=== PATIENT | male | born 1985 | race Caucasian/White ===

== ENCOUNTER 2020-01-26 21:13 | Inpatient (IN) | payer OTHER ==
[~2020-01-26] VITALS: Ht 180 cm; Wt 119.1 kg
--- OUTSIDE RECORDS SUMMARY | 2020-01-26 21:19 | XMS REPORT | CCD ---
Author Author ALEXIS HORTA Organization Unknown Address [address] [facility] [address] [place], [place] [id number] Care Team Providers Care Beautician Apprentice Name Role Phone ROMELIA EMMANUEL, MARLO Michael ROMELIA EMMANUEL, MARLO Menon Vital Signs Unknown or Not Available. Allergies Unknown or Not Available. Procedures Unknown or Not Available. History of Immunizations Unknown or Not Available. Problems Unknown or Not Available. Results Unknown or Not Available. Active Medications Unknown or Not Available. Medications Administered During Visit Unknown or Not Available. 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 Discharge Instructions You were admitted to [facility] on 12/09/2015 21:35 with a principal diagnosis of Scabies You were discharged from [facility] on 12/10/2015 00:33 Should you have any questions prior to discharge, please contact a member of your healthcare team. If you have left the hospital and have any questions, please contact your primary care physician. Chief Complaint and Reason For Visit Chief Complaint Date of Onset RASH Function Status Unknown or Not Available. Referral/Transition of Care Unknown or Not Available.
--- OUTSIDE RECORDS SUMMARY | 2020-01-26 21:20 | XMS REPORT ---
Author Author Slade GRAY [facility] Address [address] [place] [address] Care Team Providers Care Sleeve Setter Name Role Phone ISH GRAY Unavailable PROBLEMS Type Condition ICD9-CM Code [id number] Code Onset Dates Condition S tatus SNOMED Code Problem Routine health maintenance Z00.00 Act karen [id number] Problem Elevated blood pressure reading R03.0 Active [id number] ALLERGIES No Known Allergies SOCIAL HISTORY Never Assessed PLAN OF CARE Activity Details Follow Up prn with pcp if not improvin g Reason: VITAL SIGNS Height 71 in 2016-10-22 Weight 249.1 lbs 2016-10-22 Temperature 97.9 degrees Fahrenheit 2016-10-22 Heart Rate 90 bpm 2016-10-22 Respiratory Rate 20 2016-10-22 BMI 34.74 kg/m2 2016-10-22 Blood pressure systolic 124 mmHg 2016-10-22 Blood pressure diastolic 82 mmHg 2016-10-22 MEDICATIONS Medication Instructions Dosage Frequency Start Date End Date Duration S tatus Azithromycin 250 MG Orally Once a day 2 tablets on the fi rst day, then 1 tablet daily for 4 days 24h 5 day(s) Active Fluticasone Propionate 50 MCG/ACT Nasally Once a day 1 spray in each nostril 24h October, 30 day(s) Active RESULTS No Results PROCEDURES No Known procedures IMMUNIZATIONS No Known Immunizations MEDICAL (GENERAL) HISTORY Type Description Date Medical History ADHD as a child
--- OUTSIDE RECORDS SUMMARY | 2020-01-26 21:20 | XMS REPORT ---
Author Author Slade SALDANA Organization [facility] Address [address] [place] [address] Care Team Providers Care Ring Striker Name Role Phone KALINA SALDANA Unavailable PROBLEMS Type Condition ICD9-CM Code [id number] Code Onset Dates Condition S tatus SNOMED Code Problem Routine health maintenance Z00.00 Act karen [id number] Problem Elevated blood pressure reading R03.0 Active [id number] Assessment Routine health maintenance Z00.00 Feb, Active [id number] ALLERGIES Unknown Allergies SOCIAL HISTORY No smoking Hx information available PLAN OF CARE VITAL SIGNS MEDICATIONS Unknown Medications RESULTS Name Result Date Reference Range THYROID ANALYZER 2016-03-12 TSH 1.210 0.450-4.500 A1C 2016-03-12 Hemoglobin A1c 5.6 4.8-5.6 CBC 2016-03-12 WBC 7.1 3.4-10.8 RBC 5.08 4.14-5.80 Hemoglobin 15.4 12.6-17.7 Hematocrit 44.3 37.5-51.0 MCV 87 79-97 MCH 30.3 26.6-33.0 MCHC 34.8 31.5-35.7 RDW 13.9 12.3-15.4 Platelets 263 150-379 Neutrophils 58 Lymphs 32 Monocytes 9 Eos 1 Basos 0 Neutrophils (Absolute) 4.1 1.4-7.0 Lymphs (Absolute) 2.3 0.7-3.1 Monocytes(Absolute) 0.7 0.1-0.9 Eos (Absolute) 0.1 0.0-0.4 Baso (Absolute) 0.0 0.0-0.2 Immature Granulocytes 0 Immature Grans (Abs) 0.0 0.0-0.1 LIPID PANEL 2016-03-12 Cholesterol, Total 172 100-199 Triglycerides 75 0-149 HDL Cholesterol 38 >39 VLDL Cholesterol Ike 15 5-40 LDL Cholesterol Calc 119 0-99 CMP 2016-03-12 Glucose, Serum 83 65-99 BUN 21 6-20 Creatinine, Serum 0.89 0.76-1.27 eGFR If NonAfricn Am 116 >59 eGFR If Africn Am 134 >59 BUN/Creatinine Ratio 24 8-19 Sodium, Serum 141 134-144 Potassium, Serum 4.4 3.5-5.2 Chloride, Serum 100 97-108 Carbon Dioxide, Total 24 18-29 Calcium, Serum 9.4 8.7-10.2 Protein, Total, Serum 7.7 6.0-8.5 Albumin, Serum 4.7 3.5-5.5 Globulin, Total 3.0 1.5-4.5 A/G Ratio 1.6 1.1-2.5 Bilirubin, Total 0.5 0.0-1.2 Alkaline Phosphatase, S 97 39-117 AST (SGOT) 23 0-40 ALT (SGPT) 42 0-44 PROCEDURES Procedure Date Ordered Related Diagnosis Body Site ASSAY THYROID STIM HORMONE Mar 12, 2016 GLYCATED HEMOGLOBIN TEST Mar 12, 2016 COMPREHEN METABOLIC PANEL Mar 12, 2016 LIPID PANEL Mar 12, 2016 VENIPUNCT, ROUTINE* Mar 12, 2016 IMMUNIZATIONS No Known Immunizations
--- OUTSIDE RECORDS SUMMARY | 2020-01-26 21:20 | XMS REPORT ---
Author Author Slade RODRIGUEZ Organization [facility] Address [address] [place] [address] Care Team Providers Care Laborer Shipyard Name Role Phone HEMALATHA RODRIGUEZ Unavailable PROBLEMS Type Condition ICD9-CM Code TML55-AT Code Onset Dates Condition S tatus SNOMED Code Problem Routine health maintenance Z00.00 Act karen [id number] Problem Elevated blood pressure reading R03.0 Active [id number] ALLERGIES No Information ENCOUNTERS Encounter Location Date Diagnosis [facility] [address] [id number] [place] [id number] Aug, Encounter for dental examina tion Z01.20 [facility] [address] [place] [id number] Aug, Dental examination Z01.20 [facility] [address] [id number] [address] [place] [id number] 08 Jul, 2017 Family history of early CAD Z82.49 and Family history of diabetes mellitus Z83.3 [facility] [address] [id number] [address] [place] [address] Jun, Unprotected sex Z72.51 ; Scr een for STD (sexually transmitted disease) Z11.3 ; Family history of early CAD Z82.49 and Family history of diabetes mellitus Z83.3 [facility] [address] [id number] [address] [place] [address] October, Acute non-recurrent maxillar y sinusitis J01.00 [facility] [address] [facility] [id number] [address] [place] [phone] Mar, [facility] [address] [id number] [address] [place] [phone] Feb, [facility] [address] [id number] [address] [place] [address] 28 Feb, 2016 Routine health maintenance Z 00.00 [facility] [address] [facility] [id number] [address] [address] 23 Feb, 2016 Routine health maintenance Z 00.00 and Elevated blood pressure reading R03.0 IMMUNIZATIONS No Known Immunizations SOCIAL HISTORY Never Assessed REASON FOR VISIT Lab walk in--[facility] PLAN OF CARE VITAL SIGNS MEDICATIONS No Known Medications RESULTS No Results PROCEDURES Procedure Date Ordered Result Body Site LIPID PANEL Jul 23, 2017 COMPREHEN METABOLIC PANEL Jul 23, 2017 ASSAY THYROID STIM HORMONE Jul 23, 2017 COMPLETE CBC W/AUTO DIFF WBC Jul 23, 2017 VENIPUNCT, ROUTINE* Jul 23, 2017 INSTRUCTIONS MEDICATIONS ADMINISTERED No Known Medications MEDICAL (GENERAL) HISTORY Type Description Date Medical History ADHD as a child Medical History Hypertension
--- OUTSIDE RECORDS SUMMARY | 2020-01-26 21:20 | XMS REPORT ---
Author Author Slade SALDANA Organization [employer] Address Unknown Phone Unavailable Care Team Providers Care Machine Clipper Name Role Phone KALINA SALDANA CP Unavailable Allergies No Known Allergies Problems Problem Type Condition Code Onset Dates Condition Statu s Problem Elevated blood pressure reading R03.0 Active Problem Routine health maintenance Z00.00 A ctive Medications No Known Medications Vital Signs Date/Time: Mar 12, 2016 Blood Pressure Diastolic 100 mmHg Blood Pressure Systolic 130 mmHg Height 71 in Results No Known Results Summary Purpose [employer] Submission
--- OUTSIDE RECORDS SUMMARY | 2020-01-26 21:20 | XMS REPORT | Continuity of Care Document ---
Demographics Preferred Language Unknown Marital Status Unknown Scientologist Affiliation Unknown Race Unknown Ethnic Group Unknown Author Organization Unknown Address Unknown Phone Unavailable Allergies There is no data. Medications There is no data. Problems There is no data. Procedures There is no data. Results Test Result Range CBC With Differential/Platelet - 6 14:16 WBC 7.1 x10E3/uL 3.4-10.8 RBC 5.08 x10E6/uL 4.14-5.80 Hemoglobin 15.4 g/dL 12.6-17.7 Hematocrit 44.3 % 37.5-51.0 MCV 87 fL 79-97 MCH 30.3 pg 26.6-33.0 MCHC 34.8 g/dL 31.5-35.7 RDW 13.9 % 12.3-15.4 Platelets 263 x10E3/uL 150-379 Neutrophils 58 % Lymphs 32 % Monocytes 9 % Eos 1 % Basos 0 % Neutrophils (Absolute) 4.1 x10E3/uL 1.4- 7.0 Lymphs (Absolute) 2.3 x10E3/uL 0.7-3.1 Monocytes(Absolute) 0.7 x10E3/uL 0.1-0.9 Eos (Absolute) 0.1 x10E3/uL 0.0-0.4 Baso (Absolute) 0.0 x10E3/uL 0.0-0.2 Immature Granulocytes 0 % Immature Grans (Abs) 0.0 x10E3/uL 0.0-0. 1 Comp. Metabolic Panel (14) - 03/12/16 14 :16 Glucose, Serum 83 mg/dL 65-99 BUN 21 mg/dL 6-20 Creatinine, Serum 0.89 mg/dL 0.76-1.27 eGFR If NonAfricn Am 116 mL/min/1.73 >59 eGFR If Africn Am 134 mL/min/1.73 >5 9 BUN/Creatinine Ratio 24 8-19 Sodium, Serum 141 mmol/L 134-144 Potassium, Serum 4.4 mmol/L 3.5-5.2 Chloride, Serum 100 mmol/L 97-108 Carbon Dioxide, Total 24 mmol/L 18-29 Calcium, Serum 9.4 mg/dL 8.7-10.2 Protein, Total, Serum 7.7 g/dL 6.0-8.5 Albumin, Serum 4.7 g/dL 3.5-5.5 Globulin, Total 3.0 g/dL 1.5-4.5 A/G Ratio 1.6 1.1-2.5 Bilirubin, Total 0.5 mg/dL 0.0-1.2 Alkaline Phosphatase, S 97 IU/L 39-117 AST (SGOT) 23 IU/L 0-40 ALT (SGPT) 42 IU/L 0-44 Lipid Panel - 03/12/16 14:16 Cholesterol, Total 172 mg/dL 100-199 Triglycerides 75 mg/dL 0-149 HDL Cholesterol 38 mg/dL >39 VLDL Cholesterol Ike 15 mg/dL 5-40 LDL Cholesterol Calc 119 mg/dL 0-99 Hemoglobin A1c - 03/12/16 14:16 Hemoglobin A1c 5.6 % 4.8-5.6 Thyroid [place] Profile - 03/12/16 14:16 TSH 1.210 uIU/mL 0.450-4.500 CBC - 07/23/17 14:44 WHITE BLOOD CELL COUNT 6.5 Thousand/uL 3 .8-10.8 RED BLOOD CELL COUNT 5.16 Million/uL 4.2 0-5.80 HEMOGLOBIN 15.3 g/dL 13.2-17.1 HEMATOCRIT 44.7 % 38.5-50.0 MCV 86.6 fL 80.0-100.0 MCH 29.7 pg 27.0-33.0 MCHC 34.2 g/dL 32.0-36.0 RDW 13.2 % 11.0-15.0 PLATELET COUNT 270 Thousand/uL 140-400 MPV 10.2 fL 7.5-12.5 ABSOLUTE NEUTROPHILS 3010 cells/uL 1500- 7800 ABSOLUTE LYMPHOCYTES 2776 cells/uL 850-3 900 ABSOLUTE MONOCYTES 644 cells/uL 200-950 ABSOLUTE EOSINOPHILS 59 cells/uL 15-500 ABSOLUTE BASOPHILS 13 cells/uL 0-200 NEUTROPHILS 46.3 % NRG LYMPHOCYTES 42.7 % NRG MONOCYTES 9.9 % NRG EOSINOPHILS 0.9 % NRG BASOPHILS 0.2 % NRG TSH - 06/27/19 15:37 TSH 1.29 mIU/L 0.40-4.50 Encounters ACCT No. Visit Date/Time Discharge Status Pt. Type Provider Facility Loc./Unit Complaint [id number] 03/13/2016 18:05:00 Document Registration [id number] 01/25/2020 14:40:00 ACT Outpatient HEMALATHA RODRIGUEZ APRN [facility] [id number] 06/27/2019 15:00:00 Document Registration [id number] 07/23/2017 14:40:00 Document Registration
--- OUTSIDE RECORDS SUMMARY | 2020-01-26 21:20 | XMS REPORT ---
Author Author Slade SALDANA Organization [facility] Address [address] [place] [address] Care Team Providers Care Mattress Spring Encaser Name Role Phone KALINA SALDANA Unavailable PROBLEMS Type Condition ICD9-CM Code [id number] Code Onset Dates Condition S tatus SNOMED Code Problem Routine health maintenance Z00.00 Act karen [id number] Problem Elevated blood pressure reading R03.0 Active [id number] Assessment Routine health maintenance Z00.00 Feb, Active 389700530 ALLERGIES Substance Reaction Event Type Date Status N.K.D.A. Unknown Non Drug Allergy Feb, Unknown SOCIAL HISTORY No smoking Hx information available PLAN OF CARE VITAL SIGNS Height 71 in 2016-03-07 Weight 248.0 lbs 2016-03-07 Heart Rate 86 bpm 2016-03-07 Respiratory Rate 20 2016-03-07 BMI 34.59 kg/m2 2016-03-07 Blood pressure systolic 141 mmHg 2016-03-07 Blood pressure diastolic 85 mmHg 2016-03-07 MEDICATIONS Unknown Medications RESULTS Name Result Date Reference Range URINE DRUG SCREEN (IN HOUSE) 2016-03-07 Lot # [id number] Exp date 07/02 Control + COCAINE neg AMPH neg MTD neg THC neg OPIATE neg BENZO neg PCP neg BAR neg OXY neg MAMP neg TCA neg MDMA neg UA LONG DIP (IN HOUSE) 2016-03-07 Lot # [id number] Exp date 01/29 Clarity clear Color ariana Odor none GLU negative SELMA 1+ KET trace SG >=1.030 BLO trace-lysed pH 5.5 Protein negative URO 0.2 NIT negative BIGG negative Lot # Exp date PROCEDURES Procedure Date Ordered Related Diagnosis Body Site DRUG SCREEN NON TLC DEVICES Mar 07, 2016 Office Visit, New Pt., Level 3 Mar 07, 2016 URINALYSIS, AUTO, W/O SCOPE Mar 07, 2016 IMMUNIZATIONS No Known Immunizations
--- OUTSIDE RECORDS SUMMARY | 2020-01-26 21:20 | XMS REPORT ---
Author Author Slade RODRIGUEZ Organization [facility] Address [address] [place] [address] Care Team Providers Care Paper Machine Tender Name Role Phone HEMALATHA RODRIGUEZ Unavailable PROBLEMS Type Condition ICD9-CM Code VOO28-SM Code Onset Dates Condition S tatus SNOMED Code Problem Routine health maintenance Z00.00 Act karen [id number] Problem Elevated blood pressure reading R03.0 Active 89111888 ALLERGIES No Known Allergies ENCOUNTERS Encounter Location Date Diagnosis [facility] [place] [address] [address] Dec, Pharyngitis due to other org anism J02.8 [facility] [address] [id number] Aug, Encounter for dental examina tion Z01.20 [facility] [address] [id number] Aug, Dental examination Z01.20 [facility] [address] [address] 08 Jul, 2017 Family history of early CAD Z82.49 and Family history of diabetes mellitus Z83.3 [place] [address] [address] Jun, Unprotected sex Z72.51 ; Scr een for STD (sexually transmitted disease) Z11.3 ; Family history of early CAD Z82.49 and Family history of diabetes mellitus Z83.3 [place] [address] [address] October, Acute non-recurrent maxillar y sinusitis J01.00 [facility] [place] [address] [address] Mar, [facility] [place] [address] [id number] [place] [address] Feb, [facility] [address] [id number] [address] [address] Feb, Routine health maintenance Z 00.00 [facility] [place] [address] [facility] [id number] [address] [address] Feb, Routine health maintenance Z 00.00 and Elevated blood pressure reading R03.0 IMMUNIZATIONS No Known Immunizations SOCIAL HISTORY Never Assessed REASON FOR VISIT [facility] VITAL SIGNS Height 71 in 2017-12-22 Weight 250.8 lbs 2017-12-22 Temperature 98.2 degrees Fahrenheit 2017-12-22 Heart Rate 88 bpm 2017-12-22 Respiratory Rate 20 2017-12-22 BMI 34.98 kg/m2 2017-12-22 Blood pressure systolic 130 mmHg 2017-12-22 Blood pressure diastolic 92 mmHg 2017-12-22 MEDICATIONS Medication Instructions Dosage Frequency Start Date End Date Duration S tatus Amoxicillin 500 MG Orally every 8 hrs 1 capsule 8h 7 days Not-Taking PredniSONE 20 mg Orally Once a day 2 tablets 24h Dec, Dec, 05 days Active Zithromax Z-Mike 250 MG Orally Once a day 2 tablets on the first day, then 1 tablet daily for 4 days 24h Dec, Dec, 5 day(s) Acti ve RESULTS No Results PROCEDURES No Known procedures INSTRUCTIONS MEDICATIONS ADMINISTERED No Known Medications MEDICAL (GENERAL) HISTORY Type Description Date Medical History ADHD as a child Medical History Hypertension
--- OUTSIDE RECORDS SUMMARY | 2020-01-26 21:20 | XMS REPORT ---
Author Author Slade DICKEY Organization [facility] Address [address] [place] [address] Care Team Providers Care Metalizing Machine Operator Automatic Name Role Phone CLARA DICKEY Unavailable PROBLEMS Type Condition ICD9-CM Code ZPT35-VX Code Onset Dates Condition S tatus SNOMED Code Problem Routine health maintenance Z00.00 Act karen [id number] Problem Elevated blood pressure reading R03.0 Active 86598279 ALLERGIES No Known Allergies ENCOUNTERS Encounter Location Date Diagnosis [facility] [address] [address] Dec, Pharyngitis due to other org anism J02.8 [facility] [address] [id number] Aug, Encounter for dental examina tion Z01.20 [facility] [address] [id number] Aug, Dental examination Z01.20 [facility] [address] [address] 08 Jul, 2017 Family history of early CAD Z82.49 and Family history of diabetes mellitus Z83.3 [facility] [address] [address] Jun, Unprotected sex Z72.51 ; Scr een for STD (sexually transmitted disease) Z11.3 ; Family history of early CAD Z82.49 and Family history of diabetes mellitus Z83.3 [facility] [address] [address] October, Acute non-recurrent maxillar y sinusitis J01.00 [facility] [address] [address] 04 Mar, 2016 [facility] [address] [facility] [id number] [address] [address] Feb, [facility] [address] [facility] [id number] [address], [place] [address] Feb, Routine health maintenance Z 00.00 [facility] [address] [facility] [id number] [address] [address] Feb, Routine health maintenance Z 00.00 and Elevated blood pressure reading R03.0 IMMUNIZATIONS No Known Immunizations SOCIAL HISTORY Never Assessed REASON FOR VISIT prophy PLAN OF CARE Activity Details Follow Up First Available Reason:SRP VITAL SIGNS Blood pressure systolic 121 mmHg 2017-09-04 Blood pressure diastolic 79 mmHg 2017-09-04 MEDICATIONS Medication Instructions Dosage Frequency Start Date End Date Duration S tatus Amoxicillin 500 MG Orally every 8 hrs 1 capsule 8h 7 days Active RESULTS No Results PROCEDURES Procedure Date Ordered Result Body Site COMP ORAL EVALUATION - NEW/EST PT September 04, 2017 INTRAORL-PERIAPICAL 1 FILM 76404 September 04, 2017 PANORAMIC FILM SEE ALSO CODE [id number] September 04, 2017 BITEWINGS - FOUR FILMS September 04, 2017 INTRAORL-PERIAPICAL EA ADD FILM September 04, 2017 INTRAORL-PERIAPICAL EA ADD FILM September 04, 2017 INTRAORL-PERIAPICAL EA ADD FILM September 04, 2017 INTRAORL-PERIAPICAL EA ADD FILM September 04, 2017 INSTRUCTIONS MEDICATIONS ADMINISTERED No Known Medications MEDICAL (GENERAL) HISTORY Type Description Date Medical History ADHD as a child Medical History Hypertension
--- OUTSIDE RECORDS SUMMARY | 2020-01-26 21:20 | XMS REPORT ---
Author Author Slade SALDANA Organization [employer] Address Unknown Phone Unavailable Care Team Providers Care Harvesting Supervisor Name Role Phone KALINA SALDANA CP Unavailable Allergies No Known Allergies Problems Problem Type Condition Code Onset Dates Condition Statu s Problem Elevated blood pressure reading R03.0 Active Problem Routine health maintenance Z00.00 A ctive Medications Medication Code System Code Instructions Start Date End Date Status Dosage Lisinopril [facility] [address]-31 10 MG Orally Once a day Mar 18, 2016 1 tablet Results No Known Results Summary Purpose [employer] Submission
--- OUTSIDE RECORDS SUMMARY | 2020-01-26 21:20 | XMS REPORT ---
Author Author Slade MATHIAS [facility] Address Unknown Care Team Providers Care Blanket Weaver Name Role Phone ASHLIE MATHIAS Unavailable PROBLEMS Type Condition ICD9-CM Code EGT12-QO Code Onset Dates Condition S tatus SNOMED Code Problem Routine health maintenance Z00.00 Act karen [id number] Problem Elevated blood pressure reading R03.0 Active 98650184 ALLERGIES No Known Allergies ENCOUNTERS Encounter Location Date Diagnosis [facility] [address] [id number] Dec, Pharyngitis due to other org anism J02.8 [facility] [address] [id number] Aug, Encounter for dental examina tion Z01.20 [facility] [address] [id number] Aug, Dental examination Z01.20 [facility] [address] [address] 08 Jul, 2017 Family history of early CAD Z82.49 and Family history of diabetes mellitus Z83.3 [facility] [address] [address] Jun, Unprotected sex Z72.51 ; Scr een for STD (sexually transmitted disease) Z11.3 ; Family history of early CAD Z82.49 and Family history of diabetes mellitus Z83.3 [facility] [address] [address] October, Acute non-recurrent maxillar y sinusitis J01.00 [facility] [address] [address] 04 Mar, 2016 [facility] [address] [facility] [id number] [address] [place] [address] 28 Feb, 2016 [facility] [address] [facility] [id number] [address] [place] [address] 28 Feb, 2016 Routine health maintenance Z 00.00 [facility] [address] [facility] [id number] [address] [place] [address] 23 Feb, 2016 Routine health maintenance Z 00.00 and Elevated blood pressure reading R03.0 IMMUNIZATIONS No Known Immunizations SOCIAL HISTORY Never Assessed REASON FOR VISIT CA[place]O PLAN OF CARE Activity Details Follow Up prn Reason:hygiene VITAL SIGNS Blood pressure systolic 132 mmHg 2017-09-03 Blood pressure diastolic 94 mmHg 2017-09-03 MEDICATIONS Medication Instructions Dosage Frequency Start Date End Date Duration S tatus Amoxicillin 500 MG Orally every 8 hrs 1 capsule 8h 7 days Active RESULTS No Results PROCEDURES Procedure Date Ordered Result Body Site LTD ORAL EVALUATION - PROBLEM FOCUS September 03, 2017 INTRAORL-PERIAPICAL 1 FILM 37015 September 03, 2017 BITEWING - SINGLE FILM September 03, 2017 INSTRUCTIONS MEDICATIONS ADMINISTERED No Known Medications MEDICAL (GENERAL) HISTORY Type Description Date Medical History ADHD as a child Medical History Hypertension
[2020-01-26] MEDS ORDERED: NS IV 1000 ML 1,000 ML ONE (21:54)
[2020-01-26] MEDS ORDERED: ACETAMINOPHEN 500 MG TAB (TYLENOL) ONE (21:54)
[2020-01-26] MEDS ORDERED: ONDANSETRON 4 MG/2 ML (SDV) Z0FRAN ONE (21:54)
--- NOTE | 2020-01-26 21:56 | ED General ---
General Stated Complaint: FEVER,COUGH,NOT EATING Source of Information: Patient Exam Limitations: No Limitations (MASSIMO KELLY APRN) History of Present Illness Date Seen by Provider: Jan 26, 2020 Time Seen by Provider: 21:55 Initial Comments To ER with reports of fever cough and no appetite. He has general malaise. The fever has been up to 103. He is otherwise healthy, nonsmoker. He works at [employer], states there have been a few cases of coronavirus through that facility. Symptoms began on Saturday 01/20 Timing/Duration: 4-5 Days Severity: Moderate Associated Systoms: Cough, Fever/Chills (MASSIMO KELLY APRN) Allergies and Home Medications Allergies Coded Allergies: No Known Drug Allergies (Unverified , 01/26/20) Home Medications No Active Prescriptions or Reported Meds Patient Home Medication List Home Medication List Reviewed: Yes (MASSIMO KELLY APRN) Review of Systems Review of Systems Constitutional: see HPI, chills, fever, malaise, weakness EENTM: see HPI Respiratory: see HPI, cough, short of breath Genitourinary: no symptoms reported Musculoskeletal: no symptoms reported Skin: no symptoms reported Psychiatric/Neurological: No Symptoms Reported (AMSSIMO KELLY APRN) Physical Exam Vital Signs Vital Signs - First Documented 01/26/20 01/26/20 21:40 22:54 Temp 39.7 Pulse 128 Resp 18 B/P (MAP) 118/106 (110) Pulse Ox 95 O2 Delivery Room Air O2 Flow Rate 2.00 (ALEXIS AMBRIZ MD) Vital Signs Capillary Refill : (MASSIMO KELLY APRN) Height, Weight, BMI Height: '" Weight: lbs. oz. kg; BMI Method: General Appearance: No Apparent Distress, WD/WN, Other (oxygen saturation 93- 96% on room air, heart rate 115 sinus.) Eyes: Bilateral Eye Normal Inspection, Bilateral Eye PERRL, Bilateral Eye EOMI HEENT: PERRL/EOMI, TMs Normal Respiratory: Lungs Clear, Normal Breath Sounds, No Accessory Muscle Use, No Respiratory Distress Gastrointestinal: Non Tender, Soft Neurologic/Psychiatric: Alert, Oriented x3 Skin: Normal Color, Warm/Dry (MASSIMO KELLY APRN) Focused Exam Lactate Level 01/26/20 21:50: Lactic Acid Level 1.05 (ALEXIS AMBRIZ MD) Lactic Acid Level Laboratory Tests Test 01/26/20 21:50 Lactic Acid Level 1.05 MMOL/L (0.50-2.00) (ALEXIS AMBRIZ MD) Progress/Results/Core Measures Suspected Sepsis SIRS Temperature: Pulse: Respiratory Rate: Blood Pressure / Mean: (MASSIMO KELLY APRN) Results/Orders Lab Results Laboratory Tests Test 01/26/20 21:50 01/26/20 21:55 01/26/20 22:51 Range/Units White Blood Count 4.8 4.3-11.0 10^3/uL Red Blood Count 5.13 4.35-5.85 10^6/uL Hemoglobin 15.4 13.3-17.7 G/DL Hematocrit 44 40-54 % Mean Corpuscular Volume 86 80-99 FL Mean Corpuscular Hemoglobin 30 25-34 PG Mean Corpuscular Hemoglobin Concent 35 32-36 G/DL Red Cell Distribution Width 13.9 10.0-14.5 % Platelet Count 205 130-400 10^3/uL Mean Platelet Volume 10.0 7.4-10.4 FL Neutrophils (%) (Auto) 59 42-75 % Lymphocytes (%) (Auto) 27 12-44 % Monocytes (%) (Auto) 14 H 0-12 % Eosinophils (%) (Auto) 0 0-10 % Basophils (%) (Auto) 0 0-10 % Neutrophils # (Auto) 2.9 1.8-7.8 X 10^3 Lymphocytes # (Auto) 1.3 1.0-4.0 X 10^3 Monocytes # (Auto) 0.7 0.0-1.0 X 10^3 Eosinophils # (Auto) 0.0 0.0-0.3 10^3/uL Basophils # (Auto) 0.0 0.0-0.1 10^3/uL D-Dimer 0.07 0.00-0.49 UG/ML Sodium Level 138 135-145 MMOL/L Potassium Level 4.0 3.6-5.0 MMOL/L Chloride Level 105 98-107 MMOL/L Carbon Dioxide Level 22 21-32 MMOL/L Anion Gap 11 5-14 MMOL/L Blood Urea Nitrogen 21 H 7-18 MG/DL Creatinine 1.32 H 0.60-1.30 MG/DL Estimat Glomerular Filtration Rate > 60 BUN/Creatinine Ratio 16 Glucose Level 130 H 70-105 MG/DL Lactic Acid Level 1.05 0.50-2.00 MMOL/L Calcium Level 9.1 8.5-10.1 MG/DL Corrected Calcium 8.9 8.5-10.1 MG/DL Total Bilirubin 0.4 0.1-1.0 MG/DL Aspartate Amino Transf (AST/SGOT) 35 H 5-34 U/L Alanine Aminotransferase (ALT/SGPT) 47 0-55 U/L Alkaline Phosphatase 77 40-136 U/L Lactate Dehydrogenase 311 H 125-220 U/L C-Reactive Protein High Sensitivity 4.46 H 0.00-0.50 MG/DL Total Protein 7.7 6.4-8.2 GM/DL Albumin 4.3 3.2-4.5 GM/DL Procalcitonin 0.06 <0.10 NG/ML (ALEXIS AMBRIZ MD) My Orders Orders - ALEXIS AMBRIZ MD Blood Culture (01/26/20 22:29) Urinalysis (01/26/20 22:29) Urine Culture (01/26/20 22:29) Vital Signs Adult Sepsis Patie Q15M (01/26/20 22:29) Remove Rings In Anticipation O (01/26/20 22:29) Lactic Acid Analyzer (01/26/20 22:29) Ceftriaxone For Iv Use (Rocephin For I (01/26/20 22:30) Azithromycin Injection (Zithromax Inject (01/26/20 22:30) O2 (01/26/20 22:37) Arterial Blood Gas (01/26/20 22:57) Covid 19 Inhouse Test (01/26/20 22:57) (ALEXIS AMBRIZ MD) Medications Given in ED Current Medications Medications Dose Ordered Sig/Flip Route Start Time Stop Time Status Last Admin Dose Admin Acetaminophen 1,000 mg ONCE ONCE PO 01/26/20 22:00 01/26/20 22:01 DC 01/26/20 22:00 1,000 MG Azithromycin 500 mg/Sodium Chloride 250 ml @ 250 mls/hr ONCE ONCE IV 01/26/20 22:30 01/26/20 23:29 01/26/20 22:46 250 MLS/HR Ceftriaxone Sodium 1000 mg/ Sterile Water 10 ml @ 200 mls/hr ONCE ONCE IV 01/26/20 22:30 01/26/20 22:32 DC 01/26/20 22:46 200 MLS/HR Ondansetron HCl 4 mg ONCE ONCE IVP 01/26/20 22:00 01/26/20 22:01 DC 01/26/20 22:00 4 MG (ALEXIS AMBRIZ MD) Vital Signs/I&O 01/26/20 01/26/20 01/26/20 21:40 22:00 22:54 Temp 39.7 39.7 Pulse 128 Resp 18 B/P (MAP) 118/106 (110) Pulse Ox 95 96 O2 Delivery Room Air Nasal Cannula O2 Flow Rate 2.00 (ALEXIS AMBRIZ MD) Vital Signs/I&O Capillary Refill : (MASSIMO KELLY APRN) Progress Note : Time: 23:07 Progress Note Care of this patient was assumed from Massimo Kelly NP. Labs have been reviewed. Chest x-ray was viewed and demonstrated subtle patchy bibasilar infiltrates. Antibiotics were initiated with Rocephin and azithromycin after blood cultures were obtained. Given normal lactic acid and pro-calcitonin, this is likely viral. COVID 19 is suspected since patient has known exposures in the workplace. The PCR swab has been obtained. Case was reviewed with Dr. Zavala. She would like to obtain a rapid swab and an ABG prior to admission. Patient is being admitted due to hypoxia. He intermittently has dipped into the upper 80s on room air with a normal waveform. This happens most often when patient is dozing. A nasal cannula was applied to help with his hypoxia. (ALEXIS AMBRIZ MD) Diagnostic Imaging Diagonstic Imaging: Xray Plain Films/CT/US/NM/MRI: chest Comments Chest x-ray viewed by me. Report not yet available. There are subtle bibasilar patchy infiltrates. (ALEXIS AMBRIZ MD) Departure Communication (Admissions) Time/Spoke to Admitting Phy: 22:55 Dr. Zavala (ALEXIS AMBRIZ MD) Impression Primary Impression: Pneumonia Qualified Codes: J18.9 - Pneumonia, unspecified organism Additional Impressions: Person under investigation for COVID-19 Hypoxia Disposition: ADMITTED INPATIENT Condition: Stable Admissions Decision to Admit Reason: Admit from ER (General) Decision to Admit/Date: Jan 26, 2020 Time/Decision to Admit Time: 22:55 (ALEXIS AMBRIZ MD) Departure-Patient Inst. Referrals: [facility] [place]) Primary Care Physician Scripts No Active Prescriptions or Reported Meds MASSIMO KELLY APRN Jan 26, 2020 21:56 ALEXIS AMBRIZ MD Jan 26, 2020 23:09
[2020-01-26] MEDS ORDERED: ACETAMINOPHEN 500 MG TAB (TYLENOL) PO ONE (22:00)
[2020-01-26] MEDS ORDERED: NS IV 1000 ML 1,000 ML IV SCH (22:00)
[2020-01-26] MEDS ORDERED: ONDANSETRON 4 MG/2 ML (SDV) Z0FRAN IVP ONE (22:00)
[2020-01-26 22:08] LABS: BASOPHILS % (AUTO) 0 % (0-10); EOSINOPHILS % (AUTO) 0 % (0-10); HEMATOCRIT 44 % (40-54); HEMOGLOBIN 15.4 G/DL (13.3-17.7); LYMPHOCYTES # (AUTO) 1.3 X 10^3 (1.0-4.0); LYMPHOCYTES % (AUTO) 27 % (12-44); MEAN CORPUSCULAR HEMOGLOBIN 30 PG (25-34); MEAN CORPUSCULAR HGB CONC 35 G/DL (32-36); MEAN CORPUSCULAR VOLUME 86 FL (80-99); MONOCYTES # (AUTO) 0.7 X 10^3 (0.0-1.0); MONOCYTES % (AUTO) 14 % (0-12); NEUTROPHILS # (AUTO) 2.9 X 10^3 (1.8-7.8); NEUTROPHILS % (AUTO) 59 % (42-75); PLATELET COUNT 205 10^3/uL (130-400); RED CELL DISTRIBUTION WIDTH 13.9 % (10.0-14.5); WHITE BLOOD COUNT 4.8 10^3/uL (4.3-11.0)
[2020-01-26 22:30] LABS: ALANINE AMINOTRANSFERASE 47 U/L (0-55); ALBUMIN 4.3 GM/DL (3.2-4.5); ALKALINE PHOSPHATASE 77 U/L (40-136); BILIRUBIN,TOTAL 0.4 MG/DL (0.1-1.0); BUN/CREATININE RATIO 16; CALCIUM 9.1 MG/DL (8.5-10.1); CARBON DIOXIDE 22 MMOL/L (21-32); CHLORIDE 105 MMOL/L (98-107); CREATININE SERUM 1.32 MG/DL (0.60-1.30); GFR ESTIMATED > 60; GLUCOSE 130 MG/DL (70-105); SODIUM 138 MMOL/L (135-145); TOTAL PROTEIN 7.7 GM/DL (6.4-8.2)
[2020-01-26] MEDS ORDERED: AZITHROMYCIN INJECTION 500 MG in NS (IVPB) 250 ML IV ONE (22:30)
[2020-01-26] MEDS ORDERED: cefTRIAXone FOR IV USE 1,000 MG in WATER (STERILE) FOR INJECTION 10 ML IV ONE (22:30)
[2020-01-26 23:00] LABS: BILIRUBIN,URINE NEGATIVE (NEGATIVE); CLARITY,URINE CLEAR; COLOR,URINE YELLOW; GLUCOSE, URINE (UA) NEGATIVE (NEGATIVE); KETONES,URINE TRACE (NEGATIVE); LEUKOCYTE ESTERASE ,URINE NEGATIVE (NEGATIVE); NITRITE,URINE NEGATIVE (NEGATIVE); PROTEIN,URINE 1+ (NEGATIVE)
--- OUTSIDE RECORDS SUMMARY | 2020-01-26 23:17 | XMS REPORT | Continuity of Care Document ---
[...] 14:16 Hemoglobin A1c 5.6 % 4.8-5.6 Thyroid [place] Profile - 03/12/16 14:16 TSH 1.210 uIU/mL [...] - 06/27/19 15:37 TSH 1.29 mIU/L 0.40-4.50 Complete blood count (CBC) with automate d white blood cell (WBC) differential - 01/26/20 21:50 Blood leukocytes automated count (number/volume) 4.8 10*3/uL 4.3-11.0 Blood erythrocytes automated count (number/volume) 5.13 10*6/uL 4.35-5.85 Venous blood hemoglobin measurement (mass/volume) 15.4 g/dL 13.3-17.7 Blood hematocrit (volume fraction) 44 % 40-54 Automated erythrocyte mean corpuscular volume 86 [ foz_us] 80-99 Automated erythrocyte mean corpuscular h emoglobin (mass per erythrocyte) 30 pg 25-34 Automated erythrocyte mean corpuscular h emoglobin concentration measurement (mass/volume) 35 g/dL 32-36 Automated erythrocyte distribution width ratio 13. 9 % 10.0- 14.5 Automated blood platelet count (count/volume) 205 10*3/uL 130-400 Automated blood platelet mean volume measurement 10.0 [foz_us] 7.4-10.4 Automated blood neutrophils/100 leukocytes 59 % 42-75 Automated blood lymphocytes/100 leukocytes 27 % 12-44 Blood monocytes/100 leukocytes 14 % 0-12 Automated blood eosinophils/100 leukocytes 0 % 0-10 Automated blood basophils/100 leukocytes 0 % 0-10 Blood neutrophils automated count (number/volume) 2.9 10*3 1.8-7.8 Blood lymphocytes automated count (number/volume) 1.3 10*3 1.0-4.0 Blood monocytes automated count (number/volume) 0. 7 10*3 0.0-1.0 Automated eosinophil count 0.0 10*3/uL 0 .0-0.3 Automated blood basophil count (count/volume) 0.0 10*3/uL 0.0-0.1 Comprehensive metabolic panel - 01/26/20 21:50 Serum or plasma sodium measurement (moles/volume) 138 mmol/L 135-145 Serum or plasma potassium measurement (moles/volume) 4.0 mmol/L 3.6-5.0 Serum or plasma chloride measurement (moles/volume) 105 mmol/L 98-107 Carbon dioxide 22 mmol/L 21-32 Serum or plasma anion gap determination (moles/volume) 11 mmol/L 5-14 Serum or plasma urea nitrogen measurement (mass/volume ) 21 mg/dL 7-18 Serum or plasma creatinine measurement (mass/volume) 1.32 mg/dL 0.60-1.30 Serum or plasma urea nitrogen/creatinine mass ratio 16 NRG Serum or plasma creatinine measurement w ith calculation of estimated glomerular filtration rate > NRG Serum or plasma glucose measurement (mass/volume) 130 mg/dL 70-105 Serum or plasma calcium measurement (mass/volume) 9.1 mg/dL 8.5-10.1 Serum or plasma total bilirubin measurement (mass/volu me) 0.4 mg/dL 0.1-1.0 Serum or plasma alkaline phosphatase baldo surement (enzymatic activity/volume) 77 U/L 40-136 Serum or plasma aspartate aminotransfera se measurement (enzymatic activity/volume) 35 U/L 5-34 Serum or plasma alanine aminotransferase measurement (enzymatic activity/volume) 47 U/L 0-55 Serum or plasma protein measurement (mass/volume) 7.7 g/dL 6.4-8.2 Serum or plasma albumin measurement (mass/volume) 4.3 g/dL 3.2-4.5 CALCIUM CORRECTED 8.9 mg/dL 8.5-10.1 Serum ragweed IgE antibody assay - 01/25 21:50 Serum ragweed IgE antibody assay 311 U/L 125-220 PROCALCITONIN (PCT) - 01/26/20 21:50 PROCALCITONIN (PCT) 0.06 ng/mL <0.10 Blood lactic acid measurement (moles/vol ume) - 01/26/20 21:50 Blood lactic acid measurement (moles/volume) 1.05 mmol/L 0.50-2.00 Fibrin D-dimer FEU measurement in platel et poor plasma (mass/volume) - 01/26/20 21:50 Fibrin D-dimer FEU measurement in platelet poor plasma (mass/volume) 0.07 ug/mL 0.00-0.49 Serum or plasma C reactive protein measu rement (mass/volume) - 01/26/20 21:50 Serum or plasma C reactive protein measurement (mass/v olume) 4.46 mg/dL 0.00-0.50 Encounters ACCT No. Visit Date/Time Discharge Status Pt. Type Provider Facility Loc./Unit Complaint [id number] 03/13/2016 18:05:00 Document Registration [id number] 01/25/2020 14:40:00 ACT Outpatient HEMALATHA RODRIGUEZ APRN [facility] [id number] 06/27/2019 15:00:00 Document Registration [id number] 07/23/2017 14:40:00 Document Registration [id number] 01/26/2020 22:12:00 Document Registration
[2020-01-26 23:21] LABS: AMORPHOUS SEDIMENT,UR RARE AMOR URATES /LPF; BACTERIA,URINE NEGATIVE /HPF; WBC,URINE RARE /HPF
[2020-01-26 23:36] LABS: ABG BASE EXCESS -1.8 MMOL/L (-2.5-2.5); ABG PCO2 41 MMHG (35-45); ABG PH 7.36 (7.37-7.43); ABG PO2 87 MMHG (79-93); ABG TCO2 24.1 MMOL/L (21.0-31.0)
[2020-01-26 23:37] LABS: ABG OXYGEN SATURATION 97 % (94-100); ALLENS TEST POSITIVE; INSPIRED O2 2; PATIENT TEMP 38.5; VENTILATOR NO
[2020-01-26] MEDS ORDERED: ONDANSETRON 4 MG/2 ML (SDV) Z0FRAN IV PRN (23:45)
[2020-01-26] MEDS ORDERED: AZITHROMYCIN 500 MG/NS 250 ML IVPB IV ONE ×2 (23:45)
[2020-01-26 23:50] VITALS: BP 123/68
--- NOTE | 2020-01-26 23:50 | NUR ---
ALEXIS HIRSCH admitted to room 429-1, with an admitting diagnosis of PNEUMONIA & HYPOXIA, on 01/26/20 from ER via WC, accompanied by RN. ALEXIS HIRSCH introduced to surroundings, call light, bed controls, phone, TV, temperature control, lights, meal times, smoking policy, visitor policy, side rail policy, bathrooms and showers. Patient Rights given to patient in the handbook. ALEXIS HIRSCH verbalizes understanding that [facility] is not responsible for the loss or damage to any personal effects or valuables that are kept in the patients possession during their hospitalization.
[2020-01-27] MEDS: NS IV 1000 ML 1,000 ML IV SCH ×4 (00:19→21:05)
[2020-01-27 04:00] VITALS: BP 118/81
--- NOTE | 2020-01-27 07:18 | Diagnostic Imaging Report ---
EXAM: CHEST 1 VIEW, AP/PA ONLY INDICATION: Fever. Cough. COMPARISON: None. FINDINGS: Subtle airspace consolidation of the medial right lung base. Normal heart size and central pulmonary vascularity. No pleural effusion or pneumothorax. No acute osseous findings. IMPRESSION: Subtle airspace opacification of the medial right lung base. Dictated by: Dictated on workstation # [id number]
[2020-01-27 08:00] VITALS: BP 102/71
[2020-01-27] MEDS: ENOXAPARIN 40 MG/0.4 ML (LOVENOX) SYR SQ SCH (10:03)
[2020-01-27] MEDS: dexAMETHasone 6 MG TAB (DECADRON) PO SCH (10:03)
[2020-01-27] MEDS: ACETAMINOPHEN 500 MG TAB (TYLENOL) PO PRN ×2 (10:08→21:04)
[2020-01-27 12:00] VITALS: BP 124/77
[2020-01-27] MEDS ORDERED: ACET325C7 PO (12:23)
[2020-01-27] MEDS ORDERED: GUAI600T43 PO (12:23)
[2020-01-27] MEDS ORDERED: FAMO10TA43 PO (12:23)
[2020-01-27] MEDS ORDERED: MULT-1030 PO (12:23)
--- NOTE | 2020-01-27 12:23 | NUR ---
SPOKE WITH THE PT (I CALLED HIS ROOM PHONE) TO COMPLETE THE MED REC PT DENIES TAKING ANY PRESCRIPTION MEDS OTC MEDS: TYLENOL MTV MUCINEX PEPCID
--- NOTE | 2020-01-27 12:58 | History & Physical-Hospitalist ---
History of Present Illness HPI/Chief Complaint Pt is a 34yoCM with no past medical history who presented to the ER due to fever, cough, and decreased appetite. 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 His symptoms started on 01/20. He was mildly hypoxic while he slept so decision was made to admit. This morning he states he is feeling better than when he came in but still fatigued. He Source: patient Date Seen 01/27/20 Time Seen by a Provider: 12:46 Attending Physician Chayito Zavala DO [facility] Referring Physician Date of Admission Jan 26, 2020 at 23:05 Home Medications & Allergies Home Medications Reviewed patient Home Medication Reconciliation performed by pharmacy medication reconciliations rehabilitation technician and/or nursing. Patients Allergies have been reviewed. Allergies Allergies Coded Allergies No Known Drug Allergies (Unverified01/26/20) Past Seruiwe-Hrzhls-Mrmlga Hx Past Med/Social Hx: Reviewed Nursing Past Med/Soc Hx Patient Social History Employed/Student: employed Alcohol Use: Rarely Uses Recreational Drug Use: No Smoking Status: Never a Smoker 2nd Hand Smoke Exposure: No Recent Foreign Travel: No Contact w/other who traveled: No Recent Hopitalizations: No Recent Infectious Disease Expo: No Immunizations Up To Date Tetanus Booster (TDap): Unknown Seasonal Allergies Seasonal Allergies: No Past Medical History History of Blood Disorders: No Family History Reviewed Nursing Family Hx Asthma maternal grandfather Myocardial infarction maternal grandfather Review of Systems Constitutional: fever, malaise EENTM: nose congestion Respiratory: cough, short of breath Cardiovascular: No chest pain, No Hx of Intervention, No palpitations Gastrointestinal: No constipation, No diarrhea; loss of appetite; No vomiting Genitourinary: no symptoms reported Musculoskeletal: no symptoms reported Skin: no symptoms reported Psychiatric/Neurological: No Symptoms Reported Physical Exam Physical Exam Vital Signs Vital Signs - First Documented 01/26/20 01/26/20 21:40 22:54 Temp 39.7 Pulse 128 Resp 18 B/P (MAP) 118/106 (110) Pulse Ox 95 O2 Delivery Room Air O2 Flow Rate 2.00 Capillary Refill : Less Than 3 Seconds Height, Weight, BMI Height: '" Weight: lbs. oz. kg; 36.75 BMI Method: General Appearance: No Apparent Distress, WD/WN, Obese HEENT: PERRL/EOMI, Moist Mucous Membranes Neck: Normal Inspection, Supple Respiratory: Lungs Clear, No Accessory Muscle Use, No Respiratory Distress Cardiovascular: Regular Rate, Rhythm, No JVD, No Murmur Gastrointestinal: Normal Bowel Sounds, Non Tender, Soft Extremity: No Calf Tenderness, No Pedal Edema Neurologic/Psychiatric: Alert, Oriented x3, Normal Mood/Affect Skin: Normal Color, Warm/Dry Results Results/Procedures Labs Laboratory Tests 01/26/20 21:50 Patient resulted labs reviewed. Imaging: Reviewed Imaging Report [facility] [place], [place] NAME: ALEXIS HIRSCH [facility] REC#: [id number] PT STATUS: ADM Mable : 1985 PHYSICIAN: BYRON KELLY APRN ADMIT DATE: 01/26/20 Signed Date of Exam:01/26/20 CHEST 1 VIEW, AP/PA ONLY EXAM: CHEST 1 VIEW, AP/PA ONLY INDICATION: Fever. Cough. COMPARISON: None. FINDINGS: Subtle airspace consolidation of the medial right lung base. Normal heart size and central pulmonary vascularity. No pleural effusion or pneumothorax. No acute osseous findings. IMPRESSION: Subtle airspace opacification of the medial right lung base. Dictated by: Dictated on workstation # [id number] Dict: 01/27/20 0715 Trans: 01/27/20 1101 CV [id number] Interpreted by: JEAN-PIERRE TUCKER MD Electronically signed by: JEAN-PIERRE TUCKER MD 01/27/20 1101 Assessment/Plan Admission Diagnosis COVID19 Admission Status: Inpatient Order (span 2 midnights) Reason for Inpatient Admission: see below Assessment and Plan COVID19 Hypoxia Mild hypoxia improved Was only during sleep and when I was in the room he had oxygen off and was satting 97% Continue on decadron If hypoxia recurs will consider Remdesivir Continue Rocephin and Azithromycin for now If procal negative tomorrow can DC Continue symptomatic treatment with antipyretics for fever Clinical Quality Measures DVT/VTE Risk/Contraindication: Risk Factor Score Per Nursin RFS Level Per Nursing on Admit: 2=Moderate AB MARTÍNEZ MD Jan 27, 2020 12:58
[2020-01-27] MEDS ORDERED: ANTACID SUSP 30 ML UDC (MYLANTA) PO PRN (14:30)
[2020-01-27] MEDS ORDERED: MILK OF MAGNESIA 400 MG/5 ML 30 ML UDC PO PRN (14:30)
[2020-01-27] MEDS ORDERED: MELATONIN 3 MG TABLET PO PRN (14:30)
[2020-01-27] MEDS ORDERED: BENZONATATE 100 MG (TESSALON) CAPSULE PO PRN (14:30)
[2020-01-27] MEDS ORDERED: SALINE NASAL SPRAY (OCEAN) 45 ML BTL PRN (14:30)
[2020-01-27 16:18] VITALS: BP 121/78
--- NOTE | 2020-01-27 17:28 | NUR ---
Patient is positive for COVID, Notified Health dept and the patients RN. Attempted to reach the patient and Will follow up.
--- NOTE | 2020-01-27 17:35 | NUR ---
Notified physician that the [place] test was also positive.
[2020-01-27] MEDS: IBUPROFEN 600 MG (MOTRIN) TAB PO SCH ×2 (18:33→23:37)
[2020-01-27 20:04] VITALS: BP 111/70
[2020-01-27] MEDS ORDERED: cefTRIAXone 1,000 MG/SWFI 10 ML IV PUSH IV SCH ×2 (21:00)
[2020-01-27] MEDS ORDERED: AZITHROMYCIN 250 MG TAB (ZITHROMAX) PO SCH (21:00)
--- NOTE | 2020-01-27 21:21 | NUR ---
ASSISTED PT INTO SHOWER AT THIS TIME.
--- NOTE | 2020-01-27 21:47 | NUR ---
PT OUT OF SHOWER AND RETURNED TO BED. NASAL CANNULA AND TELEMETRY PLACED BACK ON PT AT THIS TIME. ALL NEEDS MET.
[2020-01-27 23:27] VITALS: BP 118/74
[2020-01-28 04:00] VITALS: BP 116/76
[2020-01-28] MEDS: dexAMETHasone 6 MG TAB (DECADRON) PO SCH (06:10)
[2020-01-28] MEDS: IBUPROFEN 600 MG (MOTRIN) TAB PO SCH (06:10)
[2020-01-28 07:14] LABS: HEMOGLOBIN 13.6 G/DL (13.3-17.7); RED CELL DISTRIBUTION WIDTH 13.6 % (10.0-14.5); WHITE BLOOD COUNT 4.4 10^3/uL (4.3-11.0)
[2020-01-28 07:38] LABS: CHLORIDE 104 MMOL/L (98-107); POTASSIUM 4.2 MMOL/L (3.6-5.0); SODIUM 140 MMOL/L (135-145)
[2020-01-28 07:39] LABS: CALCIUM 8.4 MG/DL (8.5-10.1); GLUCOSE 163 MG/DL (70-105)
[2020-01-28 07:41] LABS: CARBON DIOXIDE 26 MMOL/L (21-32)
[2020-01-28 07:43] LABS: CREATININE SERUM 0.93 MG/DL (0.60-1.30); GFR ESTIMATED > 60
[2020-01-28 07:44] LABS: BUN/CREATININE RATIO 15
[2020-01-28 08:00] VITALS: BP 122/68
--- NOTE | 2020-01-28 11:24 | NUR ---
patient walked 300 feet on room air din't need oxygen at this time Addendum: 01/28/20 at 1125 by DEJON FERNANDEZ RT Amended: Links added.
[2020-01-28] MEDS: ENOXAPARIN 40 MG/0.4 ML (LOVENOX) SYR SQ SCH (11:29)
[2020-01-28] MEDS ORDERED: AZIT250T12 PO (11:33)
--- NOTE | 2020-01-28 11:34 | Discharge Inst-Simple/Standard ---
Discharge Inst-Standard Discharge Medications New, Converted or Re-Newed RX: Transmitted to Pharmacy Patient Instructions/Follow Up Plan of Care/Instructions/FU: Please continue to take your medications as written. Please follow up with your primary care doctor to follow up this hospital stay. Please abide by the isolation guidelines given to you by the health department. Activity as Tolerated: Yes Discharge Diet: No Restrictions Return to The Hospital For: Chest pain, shortness of breath, worsening fever, if you feel you are getting worse. AB MARTÍNEZ MD Jan 28, 2020 11:34
--- NOTE | 2020-01-28 11:46 | Discharge Summary ---
Diagnosis/Chief Complaint Date of Admission Jan 26, 2020 at 23:05 Date of Discharge Discharge Date: Jan 28, 2020 Admission Diagnosis COVID19 [facility] Discharge Summary Discharge Physical Exam Allergies: Coded Allergies: No Known Drug Allergies (Unverified , 01/26/20) Vitals & I&Os Vital Signs Date Time Temp Pulse Resp B/P (MAP) Pulse Ox O2 Delivery O2 Flow Rate FiO2 01/28/20 11:16 95 Room Air 01/28/20 11:16 100 01/28/20 08:00 36.9 20 122/68 (86) 2.00 General Appearance: No Apparent Distress, WD/WN, Obese Cardiovascular: Regular Rate, Rhythm, No Murmur Gastrointestinal: Normal Bowel Sounds, Non Tender, Soft Neurologic/Psychiatric: Alert, Oriented x3 Hospital Course Pt was admitted due to mild hypoxia from COVID19. He was treated with decadron and did well. His fever resolved and by the second day of admission he was requesting discharge home. He was found to have nocturnal hypoxia which was consistent with his presentation but he reports that he has known this and has been using CPAP at night from a friend. He was tested for oxygen and did not have a continuous or exertional need. He was discharged home at his request to follow up with his primary care doctor and to follow the isolation guidelines provided by the health department. Labs (last 24 hrs) Microbiology 01/26/20 Urine Culture - Final, Complete NO GROWTH 01/26/20 Blood Culture - Preliminary, Resulted No growth Patient resulted labs reviewed. Pending Labs Imaging: Reviewed Imaging Report Discussion & Recommendations Discharge Planning: >30 minutes discharge planning Discharge Home Medications: Active Scripts Active Azithromycin 250 Mg Tablet 250 Mg PO HS Reported Pepcid AC (Famotidine) 10 Mg Tablet 10 Mg PO DAILY PRN Mucinex (Guaifenesin) 600 Mg Tab.er.12h 600 Mg PO BID PRN Centrum Men's Tablet (Multivits,Ca,Min/Iron/FA/Lycop) 1 Each Tablet 1 Each PO DAILY Tylenol (Acetaminophen) 325 Mg Capsule 650 Mg PO Q6H PRN Instructions to patient/family Please see electronic discharge instructions given to patient. Clinical Quality Measures DVT/VTE Risk/Contraindication: Risk Factor Score Per Nursin RFS Level Per Nursing on Admit: 2=Moderate Copy Copies To 1: [facility]/AB PANTOJA MD Jan 28, 2020 11:46
--- NOTE | 2020-01-28 12:15 | NUR ---
PT DISCHARGED FROM COVID UNIT. THIS RN GAVE PT INFORMATION ON QUARANTINE AND COVID EDUCATION. STAFF TOOK PT TO ER DOOR TO GET TO HIS CAR. ONE PCT WAS GOWNED UP AND PUSHED W/C AND OTHER TECH WAS 'CLEAN'.
--- NOTE | 2020-01-30 18:12 | Physician Query Clarification ---
PQ-Conflicting Diagnosis Admission/Discharge Admission Date: Jan 26, 2020 at 23:05 Discharge Date: Jan 28, 2020 at 12:15 The medical record reflects the following clinical scenario: History/Risk Factors: fever,COVID19 Clinical Findings: Fever, COVID19 Treatment: Azithromycin, Rocephin Question: Do you agree with the impression of the PNEUMONIA per Dr. Powell, ED physician. Please document a response in Progress Note or Discharge Summary. 1. Yes 2. No 3. Other, with explanation of clinical findings 4. Clinically undetermined, no explanation for clinical findings. PHYSICIAN RESPONSE Do you agree w/Consulting Dx?: Yes Please remember a lack of response to the above will prompt a phone page by CDI/Coding staff. In responding to this query, please exercise your independent professional judgment. The purpose of this communication is to more accurately reflect the complexity of your patients condition. The fact that a question is asked does not imply that any particular answer is desired or expected. Thank you for your timely response to this clarification. Requestors name: Mariam THIS PHYSICIAN QUERY FORM IS A PERMANENT PART OF THE MEDICAL RECORD MARIAM HARDIN Jan 30, 2020 18:12 AB MARTÍNEZ MD Feb 06, 2020 19:54
--- OUTSIDE RECORDS SUMMARY | 2020-01-30 18:46 | XMS REPORT | Continuity of Care Document ---
Demographics Preferred Language Unknown Marital Status Unknown Worship Affiliation Unknown Race Unknown Ethnic Group Unknown Author Author The [facility] Organization [facility] Group Address Unknown Phone Unavailable Allergies Active Description Code Type Severity Reaction Onset Reported/Identified Relationship to Patient Clinical Status Yes No Known Drug Allergies [id number] Drug Allergy Unknown N/A 01/26/2020 Medications There is no data. Problems There [...] 14:16 Hemoglobin A1c 5.6 % 4.8-5.6 Thyroid [place] Profile - 03/12/16 14:16 TSH 1.210 uIU/mL [...] protein measurement (mass/v olume) 4.46 mg/dL 0.00-0.50 Bacterial blood culture - 01/26/20 21:50 Bacterial blood culture NG NRG Coronavirus SARS-CoV-2 SO 2019 - 0 21:55 Coronavirus Ab [Units/volume] in Serum DETECTED Not Detecte Bacterial blood culture - 01/26/20 21:58 Bacterial blood culture NG NRG Complete urinalysis with reflex to cultu re - 01/26/20 22:51 Urine color determination YELLOW NRG Urine clarity determination CLEAR NR G Urine pH measurement by test strip 6.0 5-9 Specific gravity of urine by test strip >= 1.016-1.022 Urine protein assay by test strip, semi-quantitative 1+ NEGATIVE Urine glucose detection by automated test strip NE GATIVE NEGATIVE Erythrocytes detection in urine sediment by light micr oscopy NEGATIVE NEGATIVE Urine ketones detection by automated test strip TR JESSICA NEGATIVE Urine nitrite detection by test strip NEGATIVE NEGATIVE Urine total bilirubin detection by test strip NEGA TIVE NEGATIVE Urine urobilinogen measurement by automated test strip (mass/volume) 0.2 mg/dL < = 1.0 Urine leukocyte esterase detection by dipstick NEG ATIVE NEGATIVE Automated urine sediment erythrocyte cou nt by microscopy (number/high power field) NONE NRG Automated urine sediment leukocyte count by microscopy (number/high power field) RARE NRG Bacteria detection in urine sediment by light microsco py NEGATIVE NRG Crystals detection in urine sediment by light microsco py PRESENT NRG Casts detection in urine sediment by light microscopy NONE NRG Mucus detection in urine sediment by light microscopy SMALL NRG Complete urinalysis with reflex to culture NO NRG Amorphous sediment detection in urine sediment by ligh t microscopy RARE ELKIN URATES NRG Bacterial urine culture - 01/26/20 22:51 Bacterial urine culture NG NRG 2019 Coronavirus Sars-Cov-2 - 01/26/20 2 3:19 SARS coronavirus RNA [Presence] inSerum or Plasma by DEEPAK with probe detection Positive Negative Arterial blood gas measurement - 0 23:26 Blood pCO2 41 mm[Hg] 35-45 Blood pO2 87 mm[Hg] 79-93 Arterial blood bicarbonate measurement (moles/volume) 23 mmol/L 23-27 Arterial blood base excess by calculation -1.8 mmo l/L -2.5-2.5 Arterial blood oxygen saturation measurement 97 % 94-100 * Inhaled oxygen flow rate 2 NRG Arterial blood pH measurement with patient temperature correction 7.36 7.37-7.43 Arterial blood carbon dioxide, total measurement (mole s/volume) 24.1 mmol/L 21.0-31.0 Body site RIGHT RADIAL NRG Assessment of wrist artery patency prior to arterial p uncture POSITIVE NRG Setting of ventilation mode NO NR G Measurement of body temperature 38.5 NRG Automated blood complete blood count (he mogram) panel - 01/28/20 07:08 Blood leukocytes automated count (number/volume) 4.4 10*3/uL 4.3-11.0 Blood erythrocytes automated count (number/volume) 4.54 10*6/uL 4.35-5.85 Venous blood hemoglobin measurement (mass/volume) 13.6 g/dL 13.3-17.7 Blood hematocrit (volume fraction) 40 % 40-54 Automated erythrocyte mean corpuscular volume 88 [ foz_us] 80-99 Automated erythrocyte mean corpuscular h emoglobin (mass per erythrocyte) 30 pg 25-34 Automated erythrocyte mean corpuscular h emoglobin concentration measurement (mass/volume) 34 g/dL 32-36 Automated erythrocyte distribution width ratio 13. 6 % 10.0- 14.5 Automated blood platelet count (count/volume) 174 10*3/uL 130-400 Automated blood platelet mean volume measurement 10.0 [foz_us] 7.4-10.4 Whole blood basic metabolic panel - 01/13 11/01 07:08 Serum or plasma sodium measurement (moles/volume) 140 mmol/L 135-145 Serum or plasma potassium measurement (moles/volume) 4.2 mmol/L 3.6-5.0 Serum or plasma chloride measurement (moles/volume) 104 mmol/L 98-107 Carbon dioxide 26 mmol/L 21-32 Serum or plasma anion gap determination (moles/volume) 10 mmol/L 5-14 Serum or plasma urea nitrogen measurement (mass/volume ) 14 mg/dL 7-18 Serum or plasma creatinine measurement (mass/volume) 0.93 mg/dL 0.60-1.30 Serum or plasma urea nitrogen/creatinine mass ratio 15 NRG Serum or plasma creatinine measurement w ith calculation of estimated glomerular filtration rate > NRG Serum or plasma glucose measurement (mass/volume) 163 mg/dL 70-105 Serum or plasma calcium measurement (mass/volume) 8.4 mg/dL 8.5-10.1 PROCALCITONIN (PCT) - 01/28/20 07:08 PROCALCITONIN (PCT) 0.04 ng/mL <0.10 Encounters ACCT No. Visit Date/Time Discharge Status Pt. Type Provider Facility Loc./Unit Complaint [id number] 03/13/2016 18:05:00 Document Registration [id number] 01/25/2020 14:40:00 01/25/2020 23:59: 59 CLS Outpatient HEMALATHA RODRIGUEZ APRN [facility] [id number] 06/27/2019 15:00:00 Document Registration [id number] 07/23/2017 14:40:00 Document Registration [id number] 01/26/2020 23:05:00 020 12:15:00 DIS Inpatient AIDEE THOMAS DO, V [facility] 4TH PNEUMONIA,PUI, HYPOXIA
== END 2020-01-28 12:15 | disposition home or self-care (01) | DRG 177 ==
LOC: ER 21:16 → UNDOADMOB 23:05 → OBSVTOIN 23:05 → INTOOBSV 23:05 → 4TH 23:05 → UNDODISIN 01-28 12:15
PROVIDERS: ADMIT Internal Medicine; ATTEND Internal Medicine
DX: U07.1 COVID-19 (principal); J18.9 Pneumonia, unspecified organism; R09.02 Hypoxemia
CPT/HCPCS: 36415; 71045; 80048; 80053; 81000; 82805; 83605; 83615; 84145; 85025; 85027; 85379; 86141; 87040; 87088; 87635; 94760; 94761; 96361; 96365; 96375

== ENCOUNTER → 2020-10-13 | Outpatient (CLI) | payer SELFPAY ==
[~2020-10-13] MED LIST: ACET325C7 PO; AZIT250T12 PO; FAMO10TA43 PO; GUAI600T43 PO; MULT-1030 PO
== END ==
LOC: LAB 11:52
PROVIDERS: ATTEND Obstetrics & Gynecology Gynecology
DX: N46.9 Male infertility, unspecified (principal)

== ENCOUNTER 2021-02-13 13:46 | Emergency (ER) | payer SELFPAY ==
[~2021-02-13] VITALS: Ht 180.3 cm; Wt 100.0 kg
--- NOTE | 2021-02-13 14:24 | ED Respiratory ---
General Chief Complaint: COVID19 Suspect/Confirmed Stated Complaint: FLU LIKE SYMPTOMS Nursing Triage Note: Pt arrival to ER via [facility] with complaint of fever/shakes since AM. Pt states that he had covid and pneumonia last year. Pt is vaccinated since 09/02. Pt has no other complaints. Source: patient Exam Limitations: no limitations History of Present Illness Date Seen by Provider: Feb 13, 2021 Time Seen by Provider: 14:12 Initial Comments Patient is a 35-year-old male who presents to the emergency department today with a chief complaint of fever and shaking chills since waking up this morning. Patient states he has had a mild sore throat for the last couple of days. He had Covid in January 2020 and subsequently got his vaccination. Patient denies any chest pain or shortness of breath. He does have a coarse cough. He denies any abdominal pain, nausea, vomiting, diarrhea. No urinary symptoms. No rashes, no swelling in his legs or pain in his calves. Patient states his girlfriend's son was sick a couple of weeks ago and had upper respiratory symptoms. Patient does not smoke. Has a bit of a headache posteriorly. He has not taken any ibuprofen or Tylenol this morning. He did use a nasal spray and take an ipqr-jhi-zwmjvim allergy medication. All other review of systems reviewed and negative except as stated. Timing/Duration: this morning Severity: severe Prior Episodes/Possible Cause: illness exposure Modifying Factors: Worse With Coughing Associated Symptoms: fever/chills Allergies and Home Medications Allergies Coded Allergies: No Known Drug Allergies (Unverified , 01/26/20) Home Medications Acetaminophen 325 Mg Capsule, 650 MG PO Q6H PRN for PAIN-MILD (1-4) OR TEMPATURE, (Reported) Azithromycin 250 Mg Tablet, 250 MG PO HS Prescribed by: AB MARTÍNEZ on 01/28/20 1133 Famotidine 10 Mg Tablet, 10 MG PO DAILY PRN for HEARTBURN, (Reported) Guaifenesin 600 Mg Tab.er.12h, 600 MG PO BID PRN for CONGESTION, (Reported) Multivits,Ca,Min/Iron/FA/Lycop 1 Each Tablet, 1 EACH PO DAILY, (Reported) Patient Home Medication List Home Medication List Reviewed: Yes Review of Systems Review of Systems Constitutional: see HPI, chills, fever, malaise EENTM: nose congestion, throat pain Respiratory: cough Cardiovascular: no symptoms reported Gastrointestinal: no symptoms reported Genitourinary: no symptoms reported Musculoskeletal: no symptoms reported Psychiatric/Neurological: No Symptoms Reported All Other Systems Reviewed Negative Unless Noted: Yes Past Agtigdu-Lugpbe-Rzomzd Hx Patient Social History Tobacco Use?: No Use of E-Cig and/or Vaping dev: No Substance use?: No Alcohol Use?: No Pt feels they are or have been: No Immunizations Up To Date Tetanus Booster (TDap): Unknown Influenza Vaccine Up-to-Date: No; Not Current Second COVID19 Vaccination Bradley: 09/02 COVID19 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 oz. kg; 30.00 BMI Method: General Appearance: WD/WN, no apparent distress Eyes: Bilateral Eye Normal Inspection, Bilateral Eye PERRL, Bilateral Eye EOMI HEENT: PERRL/EOMI, normal ENT inspection, TMs normal, pharyngeal erythema Neck: non-tender, full range of motion, supple Respiratory: lungs clear, normal breath sounds, no respiratory distress, no accessory muscle use Cardiovascular: regular rate, rhythm, tachycardia (140s) Gastrointestinal: normal bowel sounds, non tender, soft Extremities: normal range of motion, non-tender, normal inspection, no pedal edema, no calf tenderness, normal capillary refill Neurologic/Psychiatric: alert, normal mood/affect, oriented x 3 Skin: normal color, warm/dry Focused Exam Lactate Level 02/13/21 13:57: Lactic Acid Level 1.63 Lactic Acid Level Laboratory Tests Test 02/13/21 13:57 Lactic Acid Level 1.63 MMOL/L (0.50-2.00) Progress/Results/Core Measures Suspected Sepsis Recent Fever Within 48 Hours: Yes Infection Criteria Present: Suspected New Infection New/Unexplained Altered Menta: No Within 3hrs of presentation: Admin fluids, Blood cultures prior to ABX's, Lactate level SIRS Temperature: Pulse: 144 Respiratory Rate: 20 Laboratory Tests 02/13/21 13:57: White Blood Count 11.6H Blood Pressure 113 /78 Mean: 90 02/13/21 13:57: Lactic Acid Level 1.63 Laboratory Tests 02/13/21 13:57: Creatinine 1.04, INR Comment 1.0, Platelet Count 232, Total Bilirubin 0.7 Results/Orders Lab Results Laboratory Tests Test 02/13/21 13:57 02/13/21 14:10 02/13/21 14:26 Range/Units White Blood Count 11.6 H 4.3-11.0 10^3/uL Red Blood Count 4.99 4.30-5.52 10^6/uL Hemoglobin 14.9 13.3-17.7 g/dL Hematocrit 44 40-54 % Mean Corpuscular Volume 89 80-99 fL Mean Corpuscular Hemoglobin 30 25-34 pg Mean Corpuscular Hemoglobin Concent 34 32-36 g/dL Red Cell Distribution Width 13.2 10.0-14.5 % Platelet Count 232 130-400 10^3/uL Mean Platelet Volume 9.9 9.0-12.2 fL Immature Granulocyte % (Auto) 0 % Neutrophils (%) (Auto) 79 H 42-75 % Lymphocytes (%) (Auto) 11 L 12-44 % Monocytes (%) (Auto) 8 0-12 % Eosinophils (%) (Auto) 1 0-10 % Basophils (%) (Auto) 0 0-10 % Neutrophils # (Auto) 9.2 H 1.8-7.8 10^3/uL Lymphocytes # (Auto) 1.3 1.0-4.0 10^3/uL Monocytes # (Auto) 1.0 0.0-1.0 10^3/uL Eosinophils # (Auto) 0.1 0.0-0.3 10^3/uL Basophils # (Auto) 0.0 0.0-0.1 10^3/uL Immature Granulocyte # (Auto) 0.0 0.0-0.1 10^3/uL Prothrombin Time 13.6 12.2-14.7 SEC INR Comment 1.0 0.8-1.4 Activated Partial Thromboplast Time 29 24-35 SEC D-Dimer <= 0.27 0.00-0.49 UG/ML Sodium Level 136 135-145 MMOL/L Potassium Level 4.1 3.6-5.0 MMOL/L Chloride Level 103 98-107 MMOL/L Carbon Dioxide Level 24 21-32 MMOL/L Anion Gap 9 5-14 MMOL/L Blood Urea Nitrogen 17 7-18 MG/DL Creatinine 1.04 0.60-1.30 MG/DL Estimat Glomerular Filtration Rate 82 BUN/Creatinine Ratio 16 Glucose Level 97 70-105 MG/DL Lactic Acid Level 1.63 0.50-2.00 MMOL/L Calcium Level 9.1 8.5-10.1 MG/DL Corrected Calcium 8.9 8.5-10.1 MG/DL Total Bilirubin 0.7 0.1-1.0 MG/DL Aspartate Amino Transf (AST/SGOT) 42 H 5-34 U/L Alanine Aminotransferase (ALT/SGPT) 71 H 0-55 U/L Alkaline Phosphatase 96 40-136 U/L Total Protein 7.4 6.4-8.2 GM/DL Albumin 4.2 3.2-4.5 GM/DL Influenza Type A (RT-PCR) Not Detected Not Detecte Influenza Type B (RT-PCR) Not Detected Not Detecte SARS-CoV-2 RNA (RT-PCR) Not Detected Not Detecte Group A Streptococcus Screen NEGATIVE NEGATIVE My Orders Orders - JAIMIE HCARLES MD Cbc With Automated Diff (02/13/21 14:20) Comprehensive Metabolic Panel (02/13/21 14:20) Blood Culture (02/13/21 14:20) Sputum Culture (02/13/21 14:20) Protime With Inr (02/13/21 14:20) Partial Thromboplastin Time (02/13/21 14:20) Chest 1 View, Ap/Pa Only (02/13/21 14:20) Ed Iv/Invasive Line Start (02/13/21 14:20) Ed Iv/Invasive Line Start (02/13/21 14:20) Vital Signs Adult Sepsis Patie Q15M (02/13/21 14:20) O2 (02/13/21 14:20) Remove Rings In Anticipation O (02/13/21 14:20) Lactic Acid Analyzer (02/13/21 14:20) Covid 19 Inhouse Test (02/13/21 14:20) Influenza A And B By Pcr (02/13/21 14:20) Isolation Central Supply Req (02/13/21 14:20) Rapid Strep A Screen (02/13/21 14:20) Acetaminophen Tablet (Tylenol Tablet) (02/13/21 14:30) Ns Iv 1000 Ml (Sodium Chloride 0.9%) (02/13/21 14:30) Fibrin Degradation Products (02/13/21 14:20) Ketorolac Injection (Toradol Injection) (02/13/21 14:30) Medications Given in ED Current Medications Medications Dose Ordered Sig/Flip Route Start Time Stop Time Status Last Admin Dose Admin Acetaminophen 1,000 mg ONCE ONCE PO 02/13/21 14:30 02/13/21 14:31 DC 02/13/21 14:33 1,000 MG Ketorolac Tromethamine 15 mg ONCE ONCE IVP 02/13/21 14:30 02/13/21 14:31 DC 02/13/21 14:33 15 MG Vital Signs/I&O 02/13/21 02/13/21 13:50 14:33 Temp 38.9 38.9 Pulse 144 Resp 20 B/P (MAP) 113/78 (90) Pulse Ox 99 O2 Delivery Room Air Capillary Refill : Less Than 3 Seconds Blood Pressure Mean: 90 Progress Note : Time: 16:06 Progress Note HR down to 116 1648 Patient reassessed, feels much better after a liter of fluids. Heart rate is down to 110-112. Blood pressure is good oxygen sats remain high. Labs have been reviewed and are unremarkable, very slight leukocytosis. Covid negative, flu negative, strep negative. Chest x-ray is clear. I believe the patient has an influenza-like illness. Recommended lots of fluids, alternating Tylenol and ibuprofen. Gojl-uej-twsyywo decongestants. We will put him off work until next Thursday, he will need to be fever free for 24 hours before he can return to work. Discussed the plan of care with both the patient and his significant other who is at the bedside. They are comfortable with the plan of care. All questions are sought and answered. Patient is stable for discharge. Diagnostic Imaging Diagonstic Imaging: Xray Plain Films/CT/US/NM/MRI: chest Comments [facility]. [place], [place] NAME: ALEXIS HIRSCH [facility] REC#: [id number] PT STATUS: REG ER : 1985 PHYSICIAN: JAIMIE CHARLES MD ADMIT DATE: 02/13/21/ER Draft Date of Exam:02/13/21 CHEST 1 VIEW, AP/PA ONLY INDICATION: Sepsis Frontal chest obtained at 4:11 p.m. and compared to 01/26/2020. Heart and mediastinal silhouette are normal in appearance. The lungs are clear. There is no pneumothorax or pleural fluid. IMPRESSION: No acute process in the chest. Dictated on workstation # [id number] Dict: 02/13/21 1617 Trans: 02/13/21 1619 CVB [id number] Interpreted by: CHRIS STEPHENSON MD Electronically signed by: Departure Impression Primary Impression: Viral syndrome Disposition: HOME, SELF-CARE Condition: Stable Departure-Patient Inst. Referrals: [facility] ([place]P/Family) Primary Care Physician Patient Instructions: Viral Syndrome (DC) Add. Discharge Instructions: Push lots of fluids over the course of the next 24 to 48 hours. Alternate 1 g of Tylenol (2 extra strength tablets) with 600 mg of ibuprofen (3 tablets) every 6 hours for body aches and fever. If your fever is persistent after 48 hours, if you have worsening symptoms, new concerns please come back to the emergency room or follow[facility]up with [facility] for reevaluation. Hsxz-oju-avcrboe decongestants for nasal stuffiness. Saline nasal spray is also worked very well. Follow-up with your primary care provider as needed. Work/School Note: Work Release Form Date Seen in the Emergency Department: Feb 13, 2021 Return to Work: Feb 18, 2021 Other Restrictions Listed Below: May return to work if fever free for 24 hours. JAIMIE CHARLES MD Feb 13, 2021 14:24
[2021-02-13] MEDS ORDERED: KETOROLAC 30 MG/ML VIAL IVP ONE (14:30)
[2021-02-13] MEDS ORDERED: NS IV 1000 ML 1,000 ML IV SCH (14:30)
[2021-02-13] MEDS ORDERED: ACETAMINOPHEN 500 MG TAB (TYLENOL) PO ONE (14:30)
[2021-02-13 14:33] LABS: BASOPHILS % (AUTO) 0 % (0-10); EOSINOPHILS # (AUTO) 0.1 10^3/uL (0.0-0.3); EOSINOPHILS % (AUTO) 1 % (0-10); HEMATOCRIT 44 % (40-54); HEMOGLOBIN 14.9 g/dL (13.3-17.7); LYMPHOCYTES # (AUTO) 1.3 10^3/uL (1.0-4.0); LYMPHOCYTES % (AUTO) 11 % (12-44); MEAN CORPUSCULAR HEMOGLOBIN 30 pg (25-34); MEAN CORPUSCULAR HGB CONC 34 g/dL (32-36); MEAN CORPUSCULAR VOLUME 89 fL (80-99); MEAN PLATELET VOLUME 9.9 fL (9.0-12.2); MONOCYTES % (AUTO) 8 % (0-12); NEUTROPHILS # (AUTO) 9.2 10^3/uL (1.8-7.8); NEUTROPHILS % (AUTO) 79 % (42-75); PLATELET COUNT 232 10^3/uL (130-400); WHITE BLOOD COUNT 11.6 10^3/uL (4.3-11.0)
[2021-02-13 14:38] LABS: ALBUMIN 4.2 GM/DL (3.2-4.5)
[2021-02-13 14:39] LABS: POTASSIUM 4.1 MMOL/L (3.6-5.0)
[2021-02-13 14:40] LABS: CALCIUM 9.1 MG/DL (8.5-10.1)
[2021-02-13 14:41] LABS: TOTAL PROTEIN 7.4 GM/DL (6.4-8.2)
[2021-02-13 14:43] LABS: BILIRUBIN,TOTAL 0.7 MG/DL (0.1-1.0)
[2021-02-13 14:45] LABS: CREATININE SERUM 1.04 MG/DL (0.60-1.30)
[2021-02-13 14:50] LABS: FIBRIN DEGRADATION PRODUCTS <= 0.27 UG/ML (0.00-0.49); PARTIAL THROMBOPLASTIN TIME 29 SEC (24-35); PROTHROMBIN TIME PATIENT 13.6 SEC (12.2-14.7)
--- NOTE | 2021-02-13 16:19 | Diagnostic Imaging Report ---
INDICATION: Sepsis Frontal chest obtained at 4:11 p.m. and compared to 01/26/2020. Heart and mediastinal silhouette are normal in appearance. The lungs are clear. There is no pneumothorax or pleural fluid. IMPRESSION: No acute process in the chest. Dictated by: Dictated on workstation # [id number]
[2021-02-13 17:19] VITALS: BP 160/80
== END 2021-02-13 17:14 | disposition home or self-care (01) ==
LOC: EDUNIT# 13:46 → ER 13:48
DX: B34.9 Viral infection, unspecified (principal); Z20.822 Contact with and (suspected) exposure to COVID-19
CPT/HCPCS: 36415; 71045; 80053; 83605; 85025; 85379; 85610; 85730; 87040; 87430; 87636